=== PATIENT | female | born 1990 | race American Indian/Alaskan Native ===

== ENCOUNTER 2017-12-09 10:35 | Emergency (ER) | payer MEDICAID ==
[2017-12-09 10:42] VITALS: BP 114/78
[2017-12-09 11:38] LABS: Bilirubin,Urine NEG (Negative); Color,Urine Yellow (Yellow); HCG Qualitative,Urine Negative (Negative)
[2017-12-09 11:39] LABS: Blood,Urine NEG (Negative); Mucus,Urine FEW /HPF; Protein,Urine <15 mg/dL mg/dL (Negative); Urobilinogen,Urine < 2.0 mg/dL (<2.0)
--- NOTE | 2017-12-09 12:02 | Emergency Department Report ---
ED Female HPI - General Chief complaint: Abdominal Pain Stated complaint: ABDOMINAL PAIN Time Seen by Provider: 12/09/17 11:42 Source: patient Mode of arrival: Ambulatory Limitations: No Limitations - History of Present Illness Initial comments: This is a 27-year-old female presents with vaginal itching and, low pelvic pain , and mass on vagina that is tender to touch. Patient reports last menstrual period was 11/25/2017. Reports having abdominal pain for 3 days but when she woke up this morning she noticed itching and in vaginal area and a lesion on vagina and inner thighs. There is also a fishy odor with thick white and dysuria. She is currently not taking anything for symptoms. She has had an incident in the past with multiple lesions on inner thighs a couple years back. She was placed on antibiotics for it. MD Complaint: vaginal discharge, dysuria, pelvic pain -: days(s) (3 days) Location: labia, suprapubic (pain) Radiation: non-radiating Severity: mild Quality: cramping, aching Consistency: intermittent Improves with: none Worsens with: none Are you Now?: No Last Menstrual Period: 11/25/17 EDC: 09/01/18 Associated Symptoms: vaginal discharge, abdominal pain, dysuria. denies: vaginal bleeding, nausea/vomiting, fever/chills, headaches, loss of appetite, hematuria, rash, seizure, weakness - Related Data Previous Rx's Medication Instructions Recorded Last Taken Type Sulfamethoxazole/Trimethoprim 1 each PO BID 10 Days #20 tablet 12/09/17 Unknown Rx [Bactrim DS TAB] Allergies Allergy/AdvReac Type Severity Reaction Status Date / Time tramadol AdvReac Seizure Verified 12/09/17 10:42 ED Review of Systems ROS: Stated complaint: ABDOMINAL PAIN Other details as noted in HPI Constitutional: denies: chills, fever Respiratory: denies: cough, shortness of breath, wheezing Cardiovascular: denies: chest pain, palpitations Gastrointestinal: abdominal pain. denies: nausea, vomiting, diarrhea Genitourinary: discharge (thick white discharge with foul odor), other (rash to innter thighs and large mass on labia). denies: urgency, dysuria, frequency, hematuria, abnormal menses Neurological: denies: headache, weakness, paresthesias Psychiatric: denies: anxiety, depression ED Past Medical Hx - Past Medical History Previous Medical History?: No - Surgical History Additional Surgical History: LEFT SHOULDER SURGERY - Social History Smoking Status: Current Every Day Smoker Substance Use Type: Alcohol - Medications Home Medications: Home Medications Medication Instructions Recorded Confirmed Last Taken Type Sulfamethoxazole/Trimethoprim 1 each PO BID 10 Days #20 tablet 12/09/17 Unknown Rx [Bactrim DS TAB] ED Physical Exam - General Limitations: No Limitations General appearance: alert, in no apparent distress - Respiratory Respiratory exam: Present: normal lung sounds bilaterally. Absent: respiratory distress, wheezes, rales, rhonchi, stridor, accessory muscle use - Cardiovascular Cardiovascular Exam: Present: regular rate, normal rhythm, normal heart sounds. Absent: systolic murmur, diastolic murmur, rubs, gallop - GI/Abdominal GI/Abdominal exam: Present: soft, normal bowel sounds. Absent: distended, tenderness, guarding, rebound, rigid, organomegaly, mass - External exam: Present: lesions (1 cm nodule on left labia majora, tender, negative fluctuance or erythema). Absent: erythema, swelling, lacerations, ecchymosis, bleeding Speculum exam: Present: vaginal discharge (thin white discharge). Absent: erythema, cervical discharge, vaginal bleeding, foreign body, tissue, laceration Bi-manual exam: Present: normal bi-manual exam - Back Exam Back exam: Present: normal inspection. Absent: CVA tenderness (R), CVA tenderness (L) - Neurological Exam Neurological exam: Present: alert, oriented X3, normal gait - Psychiatric Psychiatric exam: Present: normal affect, normal mood - Skin Skin exam: Present: warm, dry, intact, normal color. Absent: rash ED Course Vital Signs 12/09/17 10:36 Temperature 98.6 F Pulse Rate 91 H Respiratory 16 Rate Blood Pressure 114/78 O2 Sat by Pulse 99 Oximetry ED Medical Decision Making - Medical Decision Making This is a 27 y.o. female presents with vaginal discharge and nodule on labia for 3 days. Patient was examined by me. No distress noted. Obtained wet prep via pelvic exam and UA. Both normal. Pending GC, advised to f/u in 3 to 5 days. Discussed results with patient. Physical findings susceptible of barthloin cyst that is not ready for I&D. Start bactrim DS and f/u with [facility]. Discharged home in stable condition. F/U with OBGYN. Critical care attestation.: If time is entered above; I have spent that time in minutes in the direct care of this critically ill patient, excluding procedure time. ED Disposition Clinical Impression: Bartholin cyst, Exposure to STD Disposition: TO HOME OR SELFCARE Is pt being admited?: No Does the pt Need Aspirin: No Condition: Stable Instructions: Safe Sex (ED), Bartholin Cyst (ED) Additional Instructions: Complete full course of antibiotics. Avoid drinking alcohol while taking antibiotics and up to 24 hours after completion. Continue safe sexual intercourse. Take Tylenol, ibuprofen, or naproxen for pain. Follow up with [facility] within the next week. Prescriptions: Sulfamethoxazole/Trimethoprim [Bactrim DS TAB] 1 each PO BID 10 Days #20 tablet Referrals: FIONA REGALADO MD [Staff Physician] - 3-5 Days [facility] [Provider Group] - 3-5 Days [facility] [Outside] - 3-5 Days Time of Disposition: 12:46 Print Language: EMIRATI
== END 2017-12-09 13:00 | disposition home or self-care (01) ==
LOC: ED 10:35
DX: N75.0 Cyst of Bartholin's gland (principal); Z20.2 Contact with and (suspected) exposure to infections with a predominantly sexual mode of transmission; F17.200 Nicotine dependence, unspecified, uncomplicated; Z88.5 Allergy status to narcotic agent
CPT/HCPCS: 81001; 81025; 87210; 87591; 99283